=== PATIENT | female | born 1995 | race Caucasian/White ===

== ENCOUNTER 2017-05-08 03:40 | Observation (INO) | payer MEDICAID ==
[2017-05-08 04:52] VITALS: BP 116/68
== END 2017-05-08 05:05 | disposition home or self-care (01) ==
LOC: 4S 03:40
PROVIDERS: ADMIT Obstetrics & Gynecology; ATTEND Obstetrics & Gynecology
DX: O62.9 Abnormality of forces of labor, unspecified (principal); Z3A.39 39 weeks gestation of pregnancy
CPT/HCPCS: 59025; G0378